=== PATIENT | female | born 2000 | race African-American/Black ===

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

== ENCOUNTER 2023-09-06 06:04 | Emergency (ER) | payer SELFPAY | END 2023-09-06 06:46 | disposition home or self-care (01) | LOC: ERS 06:04 | DX: B34.9 Viral infection, unspecified (principal) | CPT/HCPCS: 99283 ==

== ENCOUNTER 2023-10-14 18:37 | Emergency (ER) | payer SELFPAY | END 2023-10-14 19:28 | disposition home or self-care (01) | LOC: ERS 18:37 | DX: L03.031 Cellulitis of right toe (principal); B35.1 Tinea unguium | CPT/HCPCS: 99283 ==

== ENCOUNTER 2024-06-04 10:26 | Emergency (ER) | payer SELFPAY ==
[2024-06-04] MEDS ORDERED: Ketorolac Tromethamine 30 MG (1 mL) VIAL ONE (11:06)
== END 2024-06-04 11:27 | disposition home or self-care (01) ==
LOC: ERS 10:26
DX: K08.89 Other specified disorders of teeth and supporting structures (principal)
CPT/HCPCS: 96372; 99282; J1885

== ENCOUNTER 2024-08-08 06:38 | Emergency (ER) | payer SELFPAY ==
[2024-08-08] MEDS ORDERED: Ketorolac Tromethamine 30 MG (1 mL) VIAL ONE (07:38)
== END 2024-08-08 08:00 | disposition home or self-care (01) ==
LOC: ERS 06:38
DX: K04.7 Periapical abscess without sinus (principal); H92.01 Otalgia, right ear
CPT/HCPCS: 96372; 99282; J1885

== ENCOUNTER 2025-09-13 21:58 | Emergency (ER) | payer SELFPAY ==
[2025-09-13] MEDS ORDERED: Ketorolac Tromethamine 30 MG (1 mL) VIAL ONE (23:14)
== END 2025-09-13 23:25 | disposition home or self-care (01) ==
LOC: ERS 21:58
DX: K04.01 Reversible pulpitis (principal)
CPT/HCPCS: 96372; 99282; J1885